=== PATIENT | female | born 1955 | race Caucasian/White ===

== ENCOUNTER 2016-09-14 14:14 | Emergency (ER) | payer MEDICARE ==
[2016-09-14 16:20] LABS: HEMOGLOBIN 13.1 gm/dl (12.3-15.3); RED BLOOD COUNT 4.22 M/UL (4.00-5.10); WHITE BLOOD COUNT 8.5 K/UL (4.5-11.0)
[2016-09-14 16:36] LABS: BUN/CREATININE RATIO 19 (0-10)
== END 2016-09-14 17:51 | disposition home or self-care (01) ==
LOC: ER1 14:14
PROVIDERS: Physician Assistant
DX: R51 Headache (principal); R11.0 Nausea; J44.9 Chronic obstructive pulmonary disease, unspecified; J45.909 Unspecified asthma, uncomplicated; E07.9 Disorder of thyroid, unspecified; Z87.891 Personal history of nicotine dependence; Z90.49 Acquired absence of other specified parts of digestive tract; Z79.899 Other long term (current) drug therapy
CPT/HCPCS: 36415; 70450; 80048; 85025; 86140; 99284